=== PATIENT | male | born 1990 | race Caucasian/White ===

== ENCOUNTER 2018-07-01 16:58 | Emergency (ER) | payer BC ==
--- NOTE | 2018-07-01 17:35 | EKG ---
Test Date: 2018-07-01 Test Time: 17:19:22 Web Development Manager: LOPEZ MEASUREMENT RESULTS: Intervals: Rate: 59 SD: 154 QRSD: 84 QT: 374 QTc: 370 [place]: P: 29 SD: 154 QRS: 64 T: 19 INTERPRETIVE STATEMENTS: Sinus bradycardia Otherwise normal ECG No previous ECG available for comparison Electronically Signed On 07-01-18 17:35:22 CDT by Koko Falcon
[2018-07-01] MEDS ORDERED: MAGNE/ALUM HYDROXD 30 ML UCUP ONE (17:47)
[2018-07-01] MEDS ORDERED: LIDOCAINE VISCOUS 2% SOLN 15 ML UDC ONE (17:47)
--- NOTE | 2018-07-01 17:57 | RAD REPORT ---
EXAM DESCRIPTION: RAD - Chest Single View - 07/01/2018 5:52 pm CLINICAL HISTORY: CHEST PAIN Chest pain. COMPARISON: No comparisons FINDINGS: Portable technique limits examination quality. The lungs are grossly clear. The heart is normal in size. No displaced fractures. IMPRESSION: No acute intrathoracic process suspected.
[2018-07-01 18:08] LABS: Protime INR 1.02
[2018-07-01 18:17] LABS: Absolute Lymphocytes (CBC) 2.8 K/uL (0.7-4.9); Absolute Neutrophil 5.5 K/uL (1.8-8.0); Basophils % 1.2 % (0-1.3); Lymphocytes % 28.3 % (15.3-44.8); MCH 30.8 pg (27.0-35.0); MCV 89.3 fL (80-100); Monocytes % 10.5 % (3.3-12.3); RBC Red Blood Cell Count 5.04 M/uL (4.33-5.43)
[2018-07-01 18:21] LABS: ALT/SGPT 21 U/L (12-78); AST/SGOT 16 U/L (15-37); Albumin 4.7 g/dL (3.4-5.0); Alkaline Phosphatase 116 U/L (45-117); BUN Blood Urea Nitrogen 18 mg/dL (7-18); Bicarbonate 25 mmol/L (21-32); Bilirubin Direct 0.1 mg/dL (0-0.2); Bilirubin Total 0.6 mg/dL (0.2-1.0); Glucose Level 94 mg/dL (74-106); Lipase 123 U/L (73-393); Magnesium 2.6 mg/dL (1.8-2.4); NT PRO-BNP 33 pg/mL (<125); Protein, Total 8.8 g/dL (6.4-8.2); Sodium Level 140 mmol/L (136-145); Troponin (Emerg Dept Use Only) < 0.02 ng/mL (0.0-0.045)
[2018-07-01] MEDS ORDERED: KETOROLAC 30 MG/ML INJ ONE (19:24)
--- NOTE | 2018-07-01 21:15 | EDPHYS ---
Physician Documentation [facility] Name: Jl Ortiz Age: 27 yrs Sex: Male : 1990 Arrival Date: 07/01/2018 Time: 17:00 Bed 17 Private MD: ED Physician Osiel Medina HPI: 07/01 17:42 This 27 yrs old Male presents to ER via Ambulatory with complaints of Chest cp Pain. 17:42 The patient or guardian reports chest pain that is located primarily in the substernal cp area. 17:42 The pain does not radiate. Associated signs and symptoms: Pertinent positives: cp shortness of breath, Pertinent negatives: cough, diaphoresis, dizziness, headache, lower extremity pain, lower extremity swelling, lightheadedness, recent travel, vomiting. The chest pain is described as sharp. Duration: The patient or guardian reports multiple episodes, that wax and wane. Historical: - Allergies: 17:12 No Known Allergies; aj1 - Home Meds: 17:12 None [Active]; aj1 - PMHx: 17:12 None; aj1 - PSHx: 17:12 None; aj1 - Immunization history:: Flu vaccine is not up to date. - Social history:: Smoking status: Patient/guardian denies using tobacco. - Ebola Screening: : Patient denies travel to an Ebola-affected area in the 21 days before illness onset. ROS: 17:45 Constitutional: Negative for body aches, chills, fever, poor PO intake. cp 17:45 Eyes: Negative for injury, pain, redness, and discharge. cp Exam: 17:30 ECG was reviewed by the Attending Physician. cp 17:50 Constitutional: The patient appears in no acute distress, alert, awake, cp non-diaphoretic, non-toxic, well developed, well nourished. 17:50 Head/Face: Normocephalic, atraumatic. Eyes: Pupils equal round and reactive to light, cp extra-ocular motions intact. Lids and lashes normal. Conjunctiva and sclera are non-icteric and not injected. Cornea within normal limits. Periorbital areas with no swelling, redness, or edema. ENT: Nares patent. No nasal discharge, no septal abnormalities noted. Tympanic membranes are normal and external auditory canals are clear. Oropharynx with no redness, swelling, or masses, exudates, or evidence of obstruction, uvula midline. Mucous membranes moist. Neck: Trachea midline, no thyromegaly or masses palpated, and no cervical lymphadenopathy. Supple, full range of motion without nuchal rigidity, or vertebral point tenderness. No Meningismus. Chest/axilla: Normal chest wall appearance and motion. Nontender with no deformity. No lesions are appreciated. 17:50 Cardiovascular: Rate: normal, Rhythm: regular, Pulses: Pulses are 2+ in right radial artery and left radial artery. Edema: is not appreciated, JVD: is not appreciated. 17:50 Respiratory: the patient does not display signs of respiratory distress, Respirations: normal, no use of accessory muscles, no retractions, no splinting, no tachypnea, labored breathing, is not present, Breath sounds: are clear throughout, no decreased breath sounds, no stridor, no wheezing. 17:50 Abdomen/GI: Inspection: abdomen appears normal, Bowel sounds: active, all quadrants, Palpation: abdomen is soft and non-tender, in all quadrants, rebound tenderness, is not appreciated, voluntary guarding, is not appreciated, involuntary guarding, is not appreciated. 17:50 Back: pain, is absent, ROM is normal. 17:50 Skin: cellulitis, is not appreciated, no rash present. 17:50 Neuro: Orientation: to person, place \T\ time. Mentation: is normal, Cerebellar function: is grossly normal, Motor: moves all fours, strength is normal, Sensation: no obvious gross deficits. 20:49 ECG was reviewed by the Attending Physician. cp Vital Signs: 17:12 BP 123 / 84; Pulse 68; Resp 16; Temp 98.0; Pulse Ox 99% on R/A; Weight 74.84 kg (R); aj1 Height 5 ft. 5 in. (165.10 cm) (R); Pain 4/10; 17:59 BP 120 / 72; Pulse 61 MON; Resp 12; Pulse Ox 97% on R/A; sv 18:31 BP 130 / 66; Pulse 60 MON; Resp 12; Pulse Ox 100% ; sv 19:14 BP 124 / 77; Pulse 58; Resp 15 S; Pulse Ox 98% on R/A; jd3 20:22 BP 123 / 85; Pulse 67; Resp 15 S; Pulse Ox 99% on R/A; Pain 3/10; jd3 21:01 BP 120 / 76; Pulse 55; Resp 14 S; Pulse Ox 98% on R/A; Pain 3/10; jd3 17:12 Body Mass Index 27.46 (74.84 kg, 165.10 cm) aj1 17:59 Sinus Rhythm sv 18:31 Sinus Rhythm sv MDM: 17:29 Patient medically screened. cp 18:00 Differential diagnosis: abnormal EKG, acute myocardial infarction, acute pericarditis, cp cholecystitis, Cholelithiasis costochondritis, esophagitis, gastritis, myocarditis, pancreatitis, pleurisy, pneumonia, pneumothorax, pulmonary embolus, thoracic aortic disection. 21:15 Data reviewed: vital signs, nurses notes, lab test result(s), EKG, radiologic studies, cp plain films. 21:15 Special discussion: Based on the patient's history, exam, and Dx evaluation, there is cp no indication for emergent intervention or inpatient Tx. It is understood by the patient/guardian that if the Sx's persist or worsen they need to return immediately for re-evaluation. 21:15 Test interpretation: by ED physician or midlevel provider: ECG, plain radiologic cp studies. 21:15 Counseling: I had a detailed discussion with the patient and/or guardian regarding: the cp historical points, exam findings, and any diagnostic results supporting the discharge/admit diagnosis, lab results, radiology results, to return to the emergency department if symptoms worsen or persist or if there are any questions or concerns that arise at home. Response to treatment: the patient's symptoms have markedly improved after treatment, and as a result, I will discharge patient. 07/01 17:39 Order name: Basic Metabolic Panel; Complete Time: 18:32 cp 07/01 18:32 Interpretation: Normal except: GFR 67. cp 07/01 17:39 Order name: CBC with Diff; Complete Time: 18:32 cp 07/01 18:33 Interpretation: Reviewed. 07/01 17:39 Order name: LFT's; Complete Time: 18:32 cp 07/01 18:32 Interpretation: Normal except: TP 8.8; GLOB 4.1. cp 07/01 17:39 Order name: Magnesium; Complete Time: 18:32 cp 07/01 18:33 Interpretation: Abnormal: MG 2.6. cp 07/01 17:39 Order name: NT PRO-BNP; Complete Time: 18:32 cp 07/01 17:39 Order name: PT-INR; Complete Time: 18:32 cp 07/01 17:22 Order name: EKG; Complete Time: 17:22 sv 07/01 17:39 Order name: Troponin (emerg Dept Use Only); Complete Time: 18:32 cp /10 18:39 Interpretation: TROPED < 0.02; Reviewed. cp 07/01 17:39 Order name: XRAY Chest (1 view); Complete Time: 18:32 cp 07/01 18:33 Interpretation: Report review. cp 07/01 17:39 Order name: Lipase; Complete Time: 18:32 cp 07/01 18:39 Interpretation: LIP 123; Reviewed. cp 07/01 20:34 Order name: EKG; Complete Time: 20:34 cp 07/01 20:34 Order name: Troponin I; Complete Time: 21:14 cp 07/01 17:22 Order name: EKG - Nurse/Tech; Complete Time: 17:22 sv 07/01 17:39 Order name: Cardiac monitoring; Complete Time: 17:57 cp 07/01 17:39 Order name: IV Saline Lock; Complete Time: 17:57 cp 07/01 17:39 Order name: Labs collected and sent; Complete Time: 17:57 cp 07/01 17:39 Order name: O2 Per Protocol; Complete Time: 17:57 cp 07/01 17:39 Order name: O2 Sat Monitoring; Complete Time: 17:57 cp 07/01 20:34 Order name: EKG - Nurse/Tech; Complete Time: 20:43 cp EC:30 Rate is 59 beats/min. Rhythm is regular. PA interval is normal. QRS interval is normal. cp QT interval is normal. T waves are Inverted in lead III. Interpreted by me. Reviewed by me. 20:49 Rate is 61 beats/min. Rhythm is regular. PA interval is normal. QRS interval is normal. cp QT interval is normal. T waves are Inverted in lead III. Interpreted by me. Reviewed by me. Administered Medications: 17:57 Drug: GI Cocktail without - (Maalox Suspension 30 ml, Lidocaine Liquid 2 % 15 sv ml) Route: PO; 18:18 Follow up: Response: No adverse reaction sv 19:22 Drug: TORadol 30 mg Route: IVP; Site: right antecubital; jd3 20:26 Follow up: Response: No adverse reaction; Pain is decreased jd3 Disposition: 07/01/18 21:15 Discharged to Home. Impression: Other chest pain. - Condition is Stable. - Discharge Instructions: Nonspecific Chest Pain, Aspirin and Your Heart. - Prescriptions for Anaprox DS 550 mg Oral Tablet - take 1 tablet by ORAL route every 12 hours As needed; 20 tablet. Pepcid 20 mg Oral Tablet - take 1 tablet by ORAL route every 12 hours for 10 days; 20 tablet. - Medication Reconciliation Form, Thank You Letter, Antibiotic Education, Prescription Opioid Use, Work release form form. - Follow up: Private Physician; When: 2 - 3 days; Reason: Recheck today's complaints. - Problem is new. - Symptoms have improved. Addendum: 07/05/2018 00:52 Co-signature as Attending Physician, Osiel Medina MD. g s Signatures: Dispatcher [employer] EDNY Edna King RN RN ajAliza Ruelas RN RN sv Page, Corey, PA PA Osiel Jules MD MD gs Davies, Jonathon, RN RN jd3 Corrections: (The following items were deleted from the chart) 07/01 18:43 06/30 17:45 Constitutional: Negative for body aches, chills, fever, poor PO intake, cp cp 07/01 18:43 06/30 17:45 Eyes: Negative for injury, pain, redness, and discharge, cp cp 07/01 18:43 06/30 17:45 ENT: Negative for drainage from ear(s), ear pain, sore throat, difficulty cp swallowing, difficulty handling secretions, cp 07/01 18:43 06/30 17:45 Cardiovascular: Positive for chest pain, Negative for edema, palpitations, cp cp 07/01 18:43 06/30 17:45 Respiratory: Negative for cough, shortness of breath, wheezing, cp cp 07/01 18:43 06/30 17:45 Abdomen/GI: Negative for abdominal pain, nausea, vomiting, and diarrhea, cp black/tarry stool, rectal bleeding, cp 07/01 18:43 06/30 17:45 Back: Negative for pain at rest, pain with movement, radiated pain, cp cp 07/01 18:43 06/30 17:45 Skin: Negative for cellulitis, rash, cp cp 07/01 18:43 06/30 17:45 Neuro: Negative for altered mental status, headache, syncope, near syncope, cp weakness, cp 07/01 18:43 06/30 17:45 All other systems are negative, cp cp 07/01 21:28 21:15 07/01/2018 21:15 Discharged to Home. Impression: Other chest pain. Condition is jd3 Stable. Forms are Medication Reconciliation Form, Thank You Letter, Antibiotic Education, Prescription Opioid Use. Follow up: Private Physician; When: 2 - 3 days; Reason: Recheck today's complaints. Problem is new. Symptoms have improved. cp
--- NOTE | 2018-07-01 21:15 | ER ---
Nurse's Notes [facility] Name: Jl Ortiz Age: 27 yrs Sex: Male : 1990 Arrival Date: 07/01/2018 Time: 17:00 Bed 17 Private MD: Diagnosis: Other chest pain Presentation: 07/01 17:10 Presenting complaint: Patient states: "For the past couple of days I have been having aj1 chest pain. Last night I was laying in bed and it started hurting really bad. I've been having chest pains all day today at work." Chest pain is exacerbated by deep breathing. Denies fever, cough, congestion. Denies SOB. Transition of care: patient was not received from another setting of care. Onset of symptoms was June 29, 2018. Risk Assessment: Do you want to hurt yourself or someone else? Patient reports no desire to harm self or others. Initial Sepsis Screen: Does the patient meet any 2 criteria? No. Patient's initial sepsis screen is negative. Does the patient have a suspected source of infection? No. Patient's initial sepsis screen is negative. Care prior to arrival: None. 17:10 Method Of Arrival: Ambulatory [facility] 17:10 Acuity: DARRELL 3 aj1 Triage Assessment: 17:12 General: Appears in no apparent distress. comfortable, Behavior is calm, cooperative, aj1 appropriate for age. Pain: Complains of pain in mid-sternal area Pain currently is 4 out of 10 on a pain scale. Neuro: Level of Consciousness is awake, alert, obeys commands. Cardiovascular: Reports chest pain, Patient's skin is warm and dry. Respiratory: Airway is patent Respiratory effort is even, unlabored, Respiratory pattern is regular, symmetrical. Historical: - Allergies: 17:12 No Known Allergies; aj1 - Home Meds: 17:12 None [Active]; aj1 - PMHx: 17:12 None; aj1 - PSHx: 17:12 None; aj1 - Immunization history:: Flu vaccine is not up to date. - Social history:: Smoking status: Patient/guardian denies using tobacco. - Ebola Screening: : Patient denies travel to an Ebola-affected area in the 21 days before illness onset. Screenin:36 Abuse screen: Denies threats or abuse. Denies injuries from another. Nutritional sv screening: No deficits noted. Tuberculosis screening: No symptoms or risk factors identified. Fall Risk None identified. Assessment: 17:45 General: Appears in no apparent distress. comfortable, well groomed, well developed, sv Behavior is calm, cooperative, appropriate for age. Pain: Complains of pain in mid-sternal area Pain does not radiate. Pain currently is 4 out of 10 on a pain scale. Quality of pain is described as sharp, Pain began 2-3 days ago. Is intermittent, Aggravated by deep breathing. Neuro: Level of Consciousness is awake, alert, obeys commands, Oriented to person, place, time, situation, Moves all extremities. Full function Gait is steady, Speech is normal. Cardiovascular: Patient's skin is warm and dry. Pulses are 3+ in right radial artery and left radial artery Rhythm is sinus rhythm. Respiratory: Respiratory effort is even, unlabored, Respiratory pattern is regular, symmetrical. Derm: Skin is pink, warm \\T\\ dry. 18:32 Reassessment: Patient appears in no apparent distress at this time. Patient and/or sv family updated on plan of care and expected duration. Pain level reassessed. Patient is alert, oriented x 3, equal unlabored respirations, skin warm/dry/pink. 19:14 Reassessment: Patient appears in no apparent distress at this time. No changes from jd3 previously documented assessment. Patient and/or family updated on plan of care and expected duration. Pain level reassessed. Patient is alert, oriented x 3, equal unlabored respirations, skin warm/dry/pink. pt reporting increased pain levels, provider notified, no new orders at this time. 20:21 Reassessment: Patient appears in no apparent distress at this time. No changes from jd3 previously documented assessment. Patient and/or family updated on plan of care and expected duration. Pain level reassessed. Patient is alert, oriented x 3, equal unlabored respirations, skin warm/dry/pink. Patient states feeling better. 21:00 Reassessment: Patient appears in no apparent distress at this time. Patient and/or jd3 family updated on plan of care and expected duration. Pain level reassessed. Patient is alert, oriented x 3, equal unlabored respirations, skin warm/dry/pink. Patient states feeling better. 21:27 Reassessment: Patient appears in no apparent distress at this time. Patient and/or jd3 family updated on plan of care and expected duration. Pain level reassessed. Patient is alert, oriented x 3, equal unlabored respirations, skin warm/dry/pink. pt reported understanding of discharge instructions, even and steady gait upon discharge. Patient states feeling better. Vital Signs: 17:12 BP 123 / 84; Pulse 68; Resp 16; Temp 98.0; Pulse Ox 99% on R/A; Weight 74.84 kg (R); aj1 Height 5 ft. 5 in. (165.10 cm) (R); Pain 4/10; 17:59 BP 120 / 72; Pulse 61 MON; Resp 12; Pulse Ox 97% on R/A; sv 18:31 BP 130 / 66; Pulse 60 MON; Resp 12; Pulse Ox 100% ; sv 19:14 BP 124 / 77; Pulse 58; Resp 15 S; Pulse Ox 98% on R/A; jd3 20:22 BP 123 / 85; Pulse 67; Resp 15 S; Pulse Ox 99% on R/A; Pain 3/10; jd3 21:01 BP 120 / 76; Pulse 55; Resp 14 S; Pulse Ox 98% on R/A; Pain 3/10; jd3 17:12 Body Mass Index 27.46 (74.84 kg, 165.10 cm) aj1 17:59 Sinus Rhythm sv 18:31 Sinus Rhythm sv ED Course: 17:00 Patient arrived in ED. as 17:12 Triage completed. aj1 17:12 Arm band placed on Patient placed in an exam room. aj1 17:14 Aliza Robison, CAMILO is Primary Nurse. sv 17:28 Victorino Chiu PA is PHCP. cp 17:28 Osiel Medina MD is Attending Physician. cp 17:36 Nurse Practitioner and/or Physician Ham Curer to see patient. sv 17:36 Patient has correct armband on for positive identification. Bed in low position. Adult sv w/ patient. Door closed. Head of bed elevated. 17:36 Patient maintains SpO2 saturation greater than 95% on room air. sv 17:38 EKG done, by radiocommunications technician. reviewed by Osiel Medina MD. sm3 17:50 Initial lab(s) drawn, by ny, sent to lab. Inserted saline lock: 20 gauge in right sv antecubital area, using aseptic technique. Blood collected. Flushed right antecubital with 5 ml normal saline. 17:53 XRAY Chest (1 view) In Process Unspecified. EDMS 17:56 X-ray completed. Portable x-ray completed in exam room. Patient tolerated procedure ml well. 18:00 quality assurance monitor body on. Pulse ox on. NIBP on. sv 18:59 Report given to [place]. sv 20:42 Troponin I Sent. jd3 21:27 No provider procedures requiring assistance completed. IV discontinued, intact, jd3 bleeding controlled, No redness/swelling at site. Pressure dressing applied. Administered Medications: 17:57 Drug: GI Cocktail without - (Maalox Suspension 30 ml, Lidocaine Liquid 2 % 15 sv ml) Route: PO; 18:18 Follow up: Response: No adverse reaction sv 19:22 Drug: TORadol 30 mg Route: IVP; Site: right antecubital; jd3 20:26 Follow up: Response: No adverse reaction; Pain is decreased jd3 Outcome: 21:15 Discharge ordered by MD. cp 21:27 Discharged to home ambulatory, with family. jd3 21:27 Condition: stable 21:27 Discharge instructions given to patient, family, Instructed on discharge instructions, follow up and referral plans. medication usage, Demonstrated understanding of instructions, follow-up care, medications, Prescriptions given X 2. 21:28 Patient left the ED. jd3 Signatures: Dispatcher [employer] EDMS Edna King RN RN ajAliza Ruelas RN RN sv Leslie Champagne Melissa ml Page, Corey, PA PA cp Davies, Jonathon, RN RN jd3 Socorro Galvez sm3 Corrections: (The following items were deleted from the chart) 18:32 18:32 Reassessment: Patient appears in no apparent distress at this time. No changes sv from previously documented assessment. Patient and/or family updated on plan of care and expected duration. Pain level reassessed. Patient is alert, oriented x 3, equal unlabored respirations, skin warm/dry/pink. sv 20:23 20:22 BP 123 / 85; Pulse 67bpm; Resp 15bpm; Spontaneous; Pulse Ox 99% RA; jd3 jd3 20:23 20:21 Reassessment: Patient appears in no apparent distress at this time. No changes jd3 from previously documented assessment. Patient and/or family updated on plan of care and expected duration. Pain level reassessed. Patient is alert, oriented x 3, equal unlabored respirations, skin warm/dry/pink. jd3
--- NOTE | 2018-07-02 09:08 | EKG ---
Test Date: 2018-07-01 Test Time: 20:40:16 Travel Cota: AMANDA MEASUREMENT RESULTS: Intervals: Rate: 61 WI: 156 QRSD: 82 QT: 376 QTc: 378 [place]: P: 20 WI: 156 QRS: 60 T: 7 INTERPRETIVE STATEMENTS: Normal sinus rhythm Normal ECG Compared to ECG 07/01/2018 17:19:22 Sinus bradycardia no longer present Electronically Signed On 07-02-18 09:07:46 CDT by Koko Falcon
== END 2018-07-01 21:28 | disposition home or self-care (01) ==
LOC: ER 16:58
DX: R07.89 Other chest pain (principal)
CPT/HCPCS: 36415; 71045; 80048; 80076; 83690; 83735; 83880; 84484; 85025; 85610; 93005; 96374; 99285

== ENCOUNTER 2023-06-24 10:41 | Emergency (ER) | payer OTHER ==
--- NOTE | 2023-06-24 11:54 | RAD REPORT ---
EXAM DESCRIPTION: RAD - Chest Pa And Lat (2 Views) - 06/24/2023 11:47 am CLINICAL HISTORY: COUGH COMPARISON: Chest Single View dated 07/01/2018 TECHNIQUE: PA and lateral views of the chest were obtained. FINDINGS: The lungs are clear. Heart size is normal and central vasculature is within normal limits. No pleural effusion or pneumothorax seen. No acute bony finding noted. IMPRESSION: No acute cardiopulmonary process.
--- NOTE | 2023-06-24 12:53 | EDPHYS ---
Physician Documentation [facility] Name: Jl Ortiz Age: 32 yrs Sex: Male : 1990 Arrival Date: 06/24/2023 Time: 10:41 Bed DIS1 Private MD: ED Physician Gene Torre HPI: 06/24 11:00 This 32 yrs old Male presents to ER via Ambulatory with complaints of Cough. rt 11:00 Patient presents to the ED with 5 days of a cough. Patient states that it is worse when rt he takes a deep breath. Denies any difficulty breathing. He states that he has had a body ache, chills, fatigue. He states that he believed that he had the flu. Was taken [id number] medicines for it with some relief. He states that he noted some blood while coughing today which scared him. Denies other changes. Symptoms are mild in severity, no other aggravating or alleviating factors.. Historical: - Allergies: 10:50 No Known Allergies; aa5 - Home Meds: 10:50 None [Active]; aa5 - PMHx: 10:50 None; aa5 - PSHx: 10:50 None; aa5 - Immunization history:: Adult Immunizations unknown. - Social history:: Smoking status: Patient denies any tobacco usage or history of. - Family history:: not pertinent. ROS: 11:00 Cardiovascular: Negative for chest pain, palpitations, and edema, Abdomen/GI: Negative rt for abdominal pain, nausea, vomiting, diarrhea, and constipation, MS/Extremity: Negative for injury and deformity, Skin: Negative for injury, rash, and discoloration, Neuro: Negative for headache, weakness, numbness, tingling, and seizure, Psych: Negative for depression, anxiety, suicide ideation, homicidal ideation, and hallucinations, 11:00 Constitutional: Positive for body aches, fatigue, 11:00 Respiratory: Positive for cough, Negative for shortness of breath, Exam: 11:00 Constitutional: This is a well developed, well nourished patient who is awake, alert, rt and in no acute distress. Head/Face: Normocephalic, atraumatic. Chest/axilla: Normal chest wall appearance and motion. Nontender with no deformity. No lesions are appreciated. Cardiovascular: Regular rate and rhythm with a normal S1 and S2. No gallops, murmurs, or rubs. Normal PMI, no JVD. No pulse deficits. Respiratory: Lungs have equal breath sounds bilaterally, clear to auscultation and percussion. No rales, rhonchi or wheezes noted. No increased work of breathing, no retractions or nasal flaring. Abdomen/GI: Soft, non-tender, with normal bowel sounds. No distension or tympany. No guarding or rebound. No evidence of tenderness throughout. Skin: Warm, dry with normal turgor. Normal color with no rashes, no lesions, and no evidence of cellulitis. MS/ Extremity: Pulses equal, no cyanosis. Neurovascular intact. Full, normal range of motion. Neuro: Awake and alert, GCS 15, oriented to person, place, time, and situation. Cranial nerves II-XII grossly intact. Motor strength 5/5 in all extremities. Sensory grossly intact. Cerebellar exam normal. Normal gait. Psych: Awake, alert, with orientation to person, place and time. Behavior, mood, and affect are within normal limits. Vital Signs: 10:49 BP 120 / 85; Pulse 67; Resp 18 S; Temp 97.7(TE); Pulse Ox 100% on R/A; Weight 68.04 kg aa5 (R); Height 5 ft. 6 in. (R); 13:00 Resp 16; ll1 10:49 Body Mass Index 24.21 (68.04 kg, 167.64 cm) aa5 MDM: 10:51 Patient medically screened. rt 12:53 Differential Diagnosis: Bronchitis Influenza Upper Respiratory Infection Pneumonia. rt Data reviewed: vital signs, nurses notes, lab test result(s), radiologic studies. Independent interpretation of the following test(s) in the Emergency Department X-Ray: My interpretation is No consolidation seen on interpretation of the x-ray images. Test considered but Not performed: CT: Low suspicion for PE, CT angiogram not indicated. Counseling: I had a detailed discussion with the patient and/or guardian regarding the historical points, exam findings, and any diagnostic results supporting the discharge/admit diagnosis, lab results, radiology results. 06/24 10:55 Order name: SARS-COV-2 RT PCR; Complete Time: 11:57 rt 06/24 10:55 Order name: Influenza Screen (a \T\ B); Complete Time: 11:57 rt 06/24 10:55 Order name: Chest Pa And Lat (2 Views) XRAY; Complete Time: 11:57 rt Administered Medications: No medications were administered Disposition Summary: 06/24/23 12:53 Discharge Ordered Notes: Location: Home rt Problem: new rt Symptoms: are unchanged rt Condition: Stable rt Diagnosis - Acute upper respiratory infection, unspecified rt Followup: rt - With: Private Physician - When: 2 - 3 days - Reason: Discharge Instructions: - Discharge Summary Sheet rt - Viral Respiratory Infection rt Forms: - Work release form bd - Medication Reconciliation Form rt - Thank You Letter rt - Antibiotic Education rt - Prescription Opioid Use rt - Patient Portal Instructions rt - Leadership Thank You Letter rt Signatures: Dispatcher [employer] Adriana Dacosta RN RN aa5 Gene Torre MD MD rt
--- NOTE | 2023-06-24 12:53 | ER ---
Nurse's Notes [facility] Name: Jl Ortiz Age: 32 yrs Sex: Male : 1990 Arrival Date: 06/24/2023 Time: 10:41 Bed DIS1 Private MD: Diagnosis: Acute upper respiratory infection, unspecified Presentation: 06/24 10:49 Chief complaint: Patient states: "I thought I had the flu on Friday because I had a aa5 headache and I was just in bed". Pt reports cough, sore throat, and fatigue. Coronavirus screen: cough unrelated to allergies. Ebola Screen: Patient denies travel to an Ebola-affected area in the 21 days before illness onset. Initial Sepsis Screen: Does the patient meet any 2 criteria? No. Patient's initial sepsis screen is negative. Does the patient have a suspected source of infection? No. Patient's initial sepsis screen is negative. Risk Assessment: Do you want to hurt yourself or someone else? Patient reports no desire to harm self or others. Onset of symptoms was June 2023. 10:49 Acuity: DARRELL 4 aa5 10:49 Method Of Arrival: Ambulatory aa5 Historical: - Allergies: 10:50 No Known Allergies; aa5 - Home Meds: 10:50 None [Active]; aa5 - PMHx: 10:50 None; aa5 - PSHx: 10:50 None; aa5 - Immunization history:: Adult Immunizations unknown. - Social history:: Smoking status: Patient denies any tobacco usage or history of. - Family history:: not pertinent. Screenin:[facility] ED Fall Risk Assessment (Adult) Score/Fall Risk Level 0 - 2 = Low Risk ll1 Oriented to surroundings, Maintained a safe environment, Educated pt \\T\\ family on fall prevention, incl call for assistance when getting out of bed, Hourly rounding (assess needs \\T\\ fall precautionary measures) done. Abuse screen: Denies threats or abuse. Nutritional screening: No deficits noted. Tuberculosis screening: No symptoms or risk factors identified. Assessment: 12:59 General: Appears in no apparent distress. Behavior is calm, cooperative, appropriate ll1 for age. Pain: Denies pain. Respiratory: Reports cough that is. Vital Signs: 10:49 BP 120 / 85; Pulse 67; Resp 18 S; Temp 97.7(TE); Pulse Ox 100% on R/A; Weight 68.04 kg aa5 (R); Height 5 ft. 6 in. (R); 13:00 Resp 16; ll1 10:49 Body Mass Index 24.21 (68.04 kg, 167.64 cm) aa5 ED Course: 10:48 Patient arrived in ED. aa5 10:49 Gene Torre MD is Attending Physician. rt 10:49 Arm band placed on. aa5 10:50 Triage completed. aa5 11:34 Influenza Screen (a \\T\\ B) Sent. kj1 11:34 SARS-COV-2 RT PCR Sent. kj1 11:49 Chest Pa And Lat (2 Views) XRAY In Process Unspecified. EDMS 13:00 Patient has correct armband on for positive identification. Bed in low position. Call ll1 light in reach. Provided Education on: n/a. 13:00 No provider procedures requiring assistance completed. Patient did not have IV access ll1 during this emergency room visit. Administered Medications: No medications were administered Medication: 13:00 VIS not applicable for this client. ll1 Outcome: 12:53 Discharge ordered by MD. rt 13:00 Discharged to home ambulatory, ll1 13:00 Condition: stable 13:00 Discharge instructions given to patient, Instructed on discharge instructions, follow up and referral plans. medication usage, Demonstrated understanding of instructions, follow-up care, medications, Prescriptions given X 2, 13:00 Patient left the ED. ll1 Signatures: Dispatcher [employer] EDAdriana Demarco, CAMILO RN aa5 Nayely Chavis kj1 Obinna Hanson RN RN 1 Gene Torre MD MD rt Corrections: (The following items were deleted from the chart) 10:51 10:51 Adriana Amaya, RN is Primary Nurse. aa5 aa5
[2023-06-24 13:26] VITALS: BP 120/85; TEMP 97.7; O2SAT 100
== END 2023-06-24 13:00 | disposition home or self-care (01) ==
LOC: ER 10:41
DX: J06.9 Acute upper respiratory infection, unspecified (principal); Z20.822 Contact with and (suspected) exposure to COVID-19
CPT/HCPCS: 71046; 87635; 87804; 99283